=== PATIENT | male | born 1945 | race Caucasian/White ===

== ENCOUNTER 2021-08-27 06:59 | Day surgery (SDC) | payer MEDICARE, OTHER ==
[~2021-08-27 06:59] MED LIST: Lactated Ringers 1,000 ML IV SCH; Sodium Chloride 0.9% 10 ML Syringe FLUSH PRN; Sodium Chloride 0.9% 2.5 ML Syringe FLUSH PRN; Sodium Chloride 0.9% 20 ML SDV IV PRN; ceFAZolin 2 GM in Premix Bag 1 BAG IV ONE
--- NOTE | 2021-08-27 08:03 | PCM.PREANE ---
Preanesthetic Assessment - Procedure Proposed Procedure: Port-a-cath placement - Anesthesia/Transfusion/Family Hx Anesthesia History: Prior Anesthesia Without Reaction Family History of Anesthesia Reaction: No Transfusion History: No Prior Transfusion(s) - Review of Systems General: No Symptoms Pulmonary: No Symptoms (Remote smoking, >45 years ago) Cardiovascular: No Symptoms Gastrointestinal: No Symptoms (Colon CA) Neurological: No Symptoms Other: Reports: None - Physical Assessment NPO Status Date: 08/26/21 NPO Status Time: 21:00 Vital Signs: Last Vital Signs Temp 97.9 F 08/27/21 07:36 Pulse 69 08/27/21 07:36 Resp 16 08/27/21 07:36 BP 138/68 08/27/21 07:36 Pulse Ox 93 L 08/27/21 07:36 Height: 5 ft 6 in Weight: 71.668 kg ASA Class: 2 Mental Status: Alert & Oriented x3 Airway Class: Mallampati = 2 Dentition: Reports: Missing Tooth/Teeth Thyro-Mental Finger Breadths: 3 Mouth Opening Finger Breadths: 3 ROM/Head Extension: Full Lungs: Clear to Auscultation, Normal Respiratory Effort Cardiovascular: Regular Rate, Regular Rhythm - Lab Values: Laboratory Last Values SARS-CoV-2 RNA ([facility]) NEGATIVE (NEGATIVE) 08/27/21 06:45 - Allergies Allergies/Adverse Reactions: Allergies Allergy/AdvReac Type Severity Reaction Status Date / Time No Known Allergies Allergy Verified 08/21/21 10:50 - Acknowledgements Anesthesia Type Planned: General Anesthesia Pt an Appropriate Candidate for the Planned Anesthesia: Yes Alternatives and Risks of Anesthesia Discussed w Pt/Guardian: Yes Pt/Guardian Understands and Agrees with Anesthesia Plan: Yes PreAnesthesia Questionnaire HEENT History: Reports: Hard of Hearing Cardiovascular History: Reports: None Respiratory History: Reports: None Gastrointestinal History: Reports: Colon Polyp Other Gastrointestinal History: has rectal cancer Genitourinary History: Reports: None Musculoskeletal History: Reports: Arthritis, Fracture, Gout Other Musculoskeletal History: hx of fx arm Neurological History: Reports: None Psychiatric History: Reports: None Endocrine/Metabolic History: Reports: None Hematologic History: Reports: None Immunologic History: Reports: None Oncologic (Cancer) History: Reports: Other (See Below) Other Oncologic History: rectal Dermatologic History: Reports: None - Past Surgical History Head Surgeries/Procedures: Reports: None HEENT Surgical History: Reports: None GI Surgical History: Reports: Hernia, Inguinal, Other (See Below) Other GI Surgeries/Procedures: Sigmoidoscopy - SUBSTANCE USE Tobacco Use Status *Q: Current Every Day Tobacco User Tobacco Use Within Last Twelve Months: Snuff/Dip Recreational Drug Use History: No - HOME MEDS Home Medications: Home Meds Indomethacin 50 mg PO TID PRN 08/21/21 [History] Loperamide [Imodium AD] 2 mg PO ASDIRECTED PRN 08/21/21 [History] allopurinoL [Zyloprim] 100 mg PO DAILY 08/21/21 [History] - CURRENT (IN HOUSE) MEDS Current Meds: Current Medications Lactated Ringer's (Ringers, Lactated) 1,000 mls @ 125 mls/hr IV ASDIRECTED WATSON Last Admin: 08/27/21 07:43 Dose: 125 mls/hr Documented by: Sodium Chloride (Sodium Chloride 0.9% 2.5 Ml Syringe) 2.5 ml FLUSH ASDIRECTED PRN PRN Reason: Keep Vein Open Sodium Chloride (Sodium Chloride 0.9% 20 Ml Sdv) 10 ml IV ASDIRECTED PRN PRN Reason: IV Use Sodium Chloride (Sodium Chloride 0.9% 10 Ml Syringe) 10 ml FLUSH ASDIRECTED PRN PRN Reason: Keep Vein Open Discontinued Medications Cefazolin Sodium/Dextrose 2 gm (/ Premix) 50 mls @ 100 mls/hr IV ONETIME ONE Stop: 08/26/21 12:41
[2021-08-27] MEDS ORDERED: Dexmedetomidine 200 MCG/2 ML SDV ONE (08:07)
[2021-08-27] MEDS ORDERED: Propofol 200 MG/20 ML SDV ONE (08:07)
[2021-08-27] MEDS ORDERED: Water For Injection, Sterile 20 ML ONE (08:08)
[2021-08-27] MEDS ORDERED: fentaNYL 100 MCG/2 ML SDV ONE (08:08)
[2021-08-27] MEDS ORDERED: Bupivacaine 0.5% 10 ML SDV ONE (09:31)
[2021-08-27] MEDS ORDERED: Lidocaine 1% 20 ML MDV ONE (09:32)
[2021-08-27] MEDS ORDERED: Iopamidol 408 MG/ML 20 ML SDV ONE (09:32)
[2021-08-27] MEDS ORDERED: Octyl 2-Cyanoacrylate 1 Tube ONE (09:32)
[2021-08-27] MEDS ORDERED: Dexamethasone 4 MG/ML 5 ML MDV ONE (09:49)
[2021-08-27] MEDS ORDERED: ePHEDrine 50 MG/ML SDV ONE (09:59)
[2021-08-27] MEDS ORDERED: Ondansetron 4 MG/2 ML SDV ONE (10:16)
[2021-08-27] MEDS ORDERED: Ketorolac 30 MG/ML SDV ONE (10:16)
--- NOTE | 2021-08-27 10:41 | PCM.OPNOTE ---
- General Post-Op/Procedure Note Date of Surgery/Procedure: 08/27/21 Operative Procedure(s): Right internal jugular port a cath Findings: RIJ port placement Pre Op Diagnosis: Rectal cancer Post-Op Diagnosis: same Anesthesia Technique: General LMA, Local Primary Surgeon: Saumya Flores Condition: Good
--- NOTE | 2021-08-27 10:47 | PCM.POSTAN ---
POST ANESTHESIA ASSESSMENT - MENTAL STATUS Mental Status: Alert, Oriented - VITAL SIGNS Vital Signs: Last Vital Signs Temp 36.5 C 08/27/21 10:37 Pulse 78 08/27/21 10:43 Resp 11 L 08/27/21 10:43 BP 112/67 08/27/21 10:43 Pulse Ox 98 08/27/21 10:43 - RESPIRATORY Respiratory Status: Respiratory Rate WNL, Airway Patent, O2 Saturation Stable - CARDIOVASCULAR CV Status: Pulse Rate WNL, Blood Pressure Stable - GASTROINTESTINAL GI Status: No Symptoms - POST OP HYDRATION Hydration Status: Adequate & Stable
--- NOTE | 2021-08-27 10:52 | PCM48HPAN ---
Post Anesthesia Note - EVALUATION WITHIN 48HRS OF ANESTHETIC Vital Signs in Normal Range: Yes Patient Participated in Evaluation: Yes Respiratory Function Stable: Yes Airway Patent: Yes Cardiovascular Function Stable: Yes Hydration Status Stable: Yes Pain Control Satisfactory: Yes Nausea and Vomiting Control Satisfactory: Yes Mental Status Recovered: Yes Vital Signs: Last Vital Signs Temp 36.5 C 08/27/21 10:37 Pulse 78 08/27/21 10:43 Resp 11 L 08/27/21 10:43 BP 112/67 08/27/21 10:43 Pulse Ox 98 08/27/21 10:43
--- NOTE | 2021-08-27 11:40 | OR ---
SURGEON: SAUMYA FLORES MD DATE OF PROCEDURE: 08/27/2021 PREOPERATIVE DIAGNOSIS: Rectal cancer. POSTOPERATIVE DIAGNOSIS: Rectal cancer. PROCEDURE PERFORMED: Right internal jugular Port-A-Cath placement. PRIMARY SURGEON: Saumya Flores MD ANESTHESIA: General LMA, local. FLUIDS: 700 mL crystalloid. ESTIMATED BLOOD LOSS: 5 mL. FINDINGS: Placement of right internal jugular Port-A-Cath. COMPLICATIONS: None. INDICATIONS: The patient is a 76-year-old male who presented to clinic with rectal cancer and is in need of a Port-A-Cath for chemotherapy. I explained the procedure, expected perioperative course, and the risks. He verbalized understanding and wishes to proceed. PROCEDURE IN DETAIL: The patient was brought into the OR, placed on the OR table in supine position. A time-out was completed verifying the patient's name, age, date of , allergies, and procedure to be performed. General LMA anesthesia was induced. I used an ultrasound and verified the vascular anatomy of the right side of the neck. The neck and chest were prepped and draped in usual standard fashion. The patient was placed into Trendelenburg position. Using ultrasound, I re- identified the vascular anatomy of the right side of the neck. I anesthetized over the right internal jugular vein with a 1:1 mixture of 0.5% Marcaine plain and 1% lidocaine plain. I injected local along the catheter tubing tract as well as on the anterior right chest wall where the port would go. I then used an 11 blade to make a isis in the skin overlying the right internal jugular vein. An ultrasound was then used to guide a needle into the right internal jugular vein. A good return of venous blood was noted. A guidewire was placed down the needle into the vein and guided into the SVC using fluoroscopy. The needle was removed, and the guidewire secured to the drapes. I turned my attention to the right anterior chest wall. A 15 blade was used to make an incision 2 fingerbreadths below the right lateral clavicle. Cautery was used to dissect down to the chest wall and create a subcutaneous pocket for the Port-A- Cath to be placed in. I then tunneled my catheter tubing from the Port-A-Cath site on the chest wall up to the insertion site on the neck. A vascular sheath and dilator were then placed over the guidewire. I dilated up my vascular tract under fluoroscopic guidance. The guidewire and dilator were removed leaving the sheath in place. The catheter tubing was placed down the sheath into the SVC. It was then peeled away. Using fluoroscopy, I then placed the tip of the catheter tubing into the distal SVC. I accessed the distal end of the catheter tubing, had a good return of venous blood. The catheter tubing was then flushed with injectable saline. I then trimmed the catheter tubing and placed it on the Port-A-Cath device. It was trimmed to 27 cm. The port was placed in the chest wall and secured on either side using interrupted 2-0 Prolene sutures. The port was then accessed. A good return of venous blood was noted. It was then flushed with 4 mL of heparinized saline. The patient was then laid flat. The subcutaneous fat overlying the Port-A-Cath device was closed with interrupted 3- 0 Vicryl sutures. The skin was closed with a running 4-0 Monocryl stitch. The insertion site on the right side of the neck was closed with an interrupted 4-0 Monocryl suture. Dermabond and sterile dressings were applied. The patient tolerated the procedure well, was extubated, and taken to PACU in stable condition. All counts were complete and correct at the end of the case. CHRISTIAN ANGEL /[id number]
--- NOTE | 2021-08-27 13:12 | CR ---
INDICATION: Post port placement TECHNIQUE: Chest radiograph 1 view COMPARISON: None FINDINGS: Mediastinum: The mediastinum is normal in appearance. The heart silhouette is normal in size and morphology. A right Port-A-Cath is present with the tip in the cavoatrial region. Lung: Small lung volumes are noted bilaterally with mild bibasilar subsegmental atelectasis. No sign of pleural effusion seen. No pneumothorax is identified. Bone and Soft tissue: Unremarkable for age. IMPRESSION: 1. A right Port-A-Cath is present with the tip in the cavoatrial region. Dictated by Ashwin Sow MD @ 08/27/2021 1:10:25 PM Dictated by: Ashwin Sow MD @ 08/27/2021 13:10:31 (Electronically Signed)
--- NOTE | 2021-08-27 13:52 | CR ---
HISTORY: Port placement. TECHNIQUE: Intraoperative fluoroscopy by surgical service. 15 seconds fluoroscopy time. Two images. FINDINGS: Port with catheter tip near the cavoatrial junction. Dictated by Juan Mark MD @ 08/27/2021 1:51:37 PM (Electronically Signed)
== END 2021-08-27 11:40 | disposition home or self-care (01) ==
LOC: MW.SDS 06:59
PROVIDERS: ATTEND Surgery
DX: C20 Malignant neoplasm of rectum (principal); J93.83 Other pneumothorax; Z98.890 Other specified postprocedural states; F17.210 Nicotine dependence, cigarettes, uncomplicated; Z01.812 Encounter for preprocedural laboratory examination; Z20.822 Contact with and (suspected) exposure to COVID-19; Z79.899 Other long term (current) drug therapy
CPT/HCPCS: 36561; 71045; 76000; A9270; C1788; J1100; J1885; J2405; J2704; J3010; J3490; J7120; U0002; 00532; 99100; Q9966